=== PATIENT | female | born 1990 | race Caucasian/White ===

== ENCOUNTER 2025-02-23 09:26 | Emergency (ER) | payer OTHER, SELFPAY ==
[2025-02-23 09:31] VITALS: BP 168/116; PULSE 78; TEMP 36.8; O2SAT 100; BMI 24.1
[2025-02-23 09:35] VITALS: BP 168/116
--- NOTE | 2025-02-23 09:46 | ED.GENADUL1 ---
HPI HPI - General Adult General Chief complaint: Abdominal Pain Stated complaint: ABDOMINAL PAIN, SHAKING Time Seen by Provider: 02/23/25 09:30 Source: patient Mode of arrival: walk-in History of Present Illness HPI narrative: 34-year-old female presents to the emergency department for epigastric pain. It began yesterday and has been continuous. No pain in the lower abdomen. No vomiting or diarrhea or constipation. No fever or trauma. She states she is homeless and has been eating some food recently but her significant other did not get ill. She has had 2 C-sections, otherwise no abdominal surgeries. Related Data Home Medications ?Medication ?Instructions ?Recorded ?Confirmed No Known Home Medications 02/23/25 02/23/25 Allergies Allergy/AdvReac Type Severity Reaction Status Date / Time No Known Drug Allergies Allergy Verified 02/23/25 09:38 Opioid HPI Opioid Management Most Recent Opioid Data: No Data to Display Review of Systems ROS Narrative A ten point review of systems is negative except as noted above. PFSH PFSH Social History Little interest or pleasure in doing things: not at all Feeling down, depressed, or hopeless: not at all Exam Narrative Exam Narrative: Nurses note and vital signs reviewed and patient is not hypoxic. General: The patient appears unkempt and in no apparent distress. Patient is resting comfortably on cart. Skin: Warm, dry, no pallor noted. There is no rash noted. Head: Normocephalic, atraumatic Eye: Normal conjunctiva, no drainage Ears, Nose, Mouth, and Throat: oral mucosa is moist. Nares patent. Cardiovascular: Regular Rate and Rhythm Respiratory: Patient is in no distress, no accessory muscle use, lungs are clear to auscultation, no wheezing, rales or rhonchi Back: non-tender, no CVA tenderness bilaterally to percussion. GI: Soft and nondistended. Tenderness only in the epigastric area. No masses. No lower abdominal tenderness Musculoskeletal: The patient has no evidence of calf tenderness, no pitting edema, symmetrical pulses noted bilaterally Neurological: A&O, normal speech Psychiatric: Cooperative Constitutional Vital Signs, click to edit/add: Last Vital Signs Temp 98.3 F 02/23/25 09:31 Pulse 73 02/23/25 10:10 Resp 14 02/23/25 10:10 BP 130/93 H 02/23/25 10:09 Pulse Ox 100 02/23/25 09:31 O2 Del Method Room Air 02/23/25 09:31 Course Vital Signs Vital signs: Vital Signs Temperature 98.3 F 02/23/25 09:31 Pulse Rate 78 02/23/25 09:31 Respiratory Rate 20 02/23/25 09:31 Blood Pressure 168/116 H 02/23/25 09:31 Pulse Oximetry 100 02/23/25 09:31 Oxygen Delivery Method Room Air 02/23/25 09:31 Temperature 98.3 F 02/23/25 09:31 Pulse Rate 73 02/23/25 10:10 Respiratory Rate 14 02/23/25 10:10 Blood Pressure 130/93 H 02/23/25 10:09 Pulse Oximetry 100 02/23/25 09:31 Oxygen Delivery Method Room Air 02/23/25 09:31 Medical Decision Making MDM Narrative Medical decision making narrative: Her workup including amylase and lipase is negative. She is feeling improved after GI cocktail and should be discharged home. She was recommended Tums and Maalox. Treatment diagnosis and follow-up were discussed with the patient Differential Diagnosis Differential Diagnosis: Food poisoning, pancreatitis, hepatitis, GERD Lab Data Lab results reviewed: Yes I reviewed the patient's lab results Labs: Lab Results 02/23/25 Range/Units 10:06 WBC 9.2 (4.0-11.0) 10^3/uL RBC 4.86 (4.20-5.40) 10^6/uL Hgb 13.0 (12.0-16.0) g/dL Hct 39.7 (36.0-48.0) % MCV 81.7 (81.0-99.0) fL MCH 26.7 (26.7-34.0) pg MCHC 32.7 (29.9-35.2) g/dL RDW 15.9 H (11.0-15.0) % Plt Count 288 (150-450) 10^3/uL MPV 10.7 (9.5-13.5) fL Neut % (Auto) 71.2 (43.0-75.0) % Lymph % (Auto) 19.7 L (20.5-60.0) % [place] % (Auto) 7.9 (1.7-12.0) % Eos % (Auto) 0.4 L (0.9-7.0) % Baso % (Auto) 0.3 (0.2-2.0) % Neut # (Auto) 6.6 H (1.4-6.5) 10^3/uL Lymph # (Auto) 1.8 (1.2-3.8) 10^3/uL [place] # (Auto) 0.7 (0.3-0.8) 10^3/uL Eos # (Auto) 0.0 (0.0-0.7) 10^3/uL Baso # (Auto) 0.0 (0.0-0.1) 10^3/uL Abs Immat Gran (auto) 0.05 H (0.00-0.03) 10^3/uL Imm/Tot Granulo (auto) 0.5 (0.0-0.5) % Sodium 139 (136-145) mmol/L Potassium 3.9 (3.5-5.1) mmol/L Chloride 103 (98-107) mmol/L Carbon Dioxide 26.6 (21.0-32.0) mmol/L Anion Gap 13.3 BUN 11.0 (7.0-18.0) mg/dL Creatinine 0.82 (0.55-1.02) mg/dL Est GFR ( Amer) >60 (>=60 mL/min/1.73m^2) Est GFR (Non-Af Amer) >60 (>=60 mL/min/1.73m^2) BUN/Creatinine Ratio 13.4 Glucose 100 (74-106) mg/dL Calcium 8.8 (8.5-10.1) mg/dL Total Bilirubin 0.3 (0.2-1.0) mg/dL Direct Bilirubin 0.1 (0.0-0.2) mg/dL AST 14 L (15-37) U/L ALT 11 L (14-59) U/L Alkaline Phosphatase 85 (46-116) U/L Total Protein 7.3 (6.4-8.2) g/dL Albumin 3.5 (3.4-5.0) g/dL Globulin 3.8 g/dL Albumin/Globulin Ratio 0.9 Amylase 91 (25-115) U/L Lipase 44.0 (16.0-77.0) U/L Serum HCG, Qual Negative (NEGATIVE) ECG Data Attestation: I personally reviewed and interpreted this ECG as follows: (EKG on my interpretation shows sinus rhythm with rate of 76 and no acute change) Discharge Plan Discharge Chief Complaint: Abdominal Pain Clinical Impression: Abdominal pain, epigastric Patient Disposition: Home, Self-Care Time of Disposition Decision: 11:04 Condition: Good Mode of Transportation: Private Vehicle Prescriptions / Home Meds: No Action No Known Home Medications Print Language: Trinidadian Instructions: Epigastric Pain (ED) Referrals: Physician,Non-Staff, MD [Primary Care Provider] - 1 week
--- NOTE | 2025-02-23 09:48 | ECG_ITS ---
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 Measurements Intervals [place] Rate: 76 P: 62 AK: 152 QRS: 64 QRSD: 82 T: 43 QT: 392 QTc: 422 Interpretive Statements 1100 Sinus rhythm 9110 normal ECG No previous ECG available for comparison Electronically Signed On 02-23-2025 20:13:24 EDT by JIM ORTIZ M.D.
[2025-02-23] MEDS: lidocaine HCL 15 ML, MAG HYDROX/ALUMINUM HYD/SIMETH 30 ML, HYOSCYAMINE SULFATE 0.25 MG PO (10:00)
[2025-02-23 10:04] VITALS: PULSE 70
[2025-02-23 10:06] VITALS: BP 139/102; PULSE 75
[2025-02-23 10:09] VITALS: BP 130/93; PULSE 68
[2025-02-23 10:10] VITALS: PULSE 73
[2025-02-23 10:15] LABS: Basophils Percent Auto 0.3 % (0.2-2.0); Eosinophils Percent Auto 0.4 % (0.9-7.0); Hematocrit 39.7 % (36.0-48.0); Immature Granulocytes Abs Auto 0.05 10^3/uL (0.00-0.03); Immature Granulocytes Pct Auto 0.5 % (0.0-0.5); Lymphocytes Absolute Auto 1.8 10^3/uL (1.2-3.8); Lymphocytes Percent Auto 19.7 % (20.5-60.0); Mean Corpuscular HGB Conc 32.7 g/dL (29.9-35.2); Mean Corpuscular Hemoglobin 26.7 pg (26.7-34.0); Mean Corpuscular Volume 81.7 fL (81.0-99.0); Mean Platelet Volume 10.7 fL (9.5-13.5); Monocytes Absolute Auto 0.7 10^3/uL (0.3-0.8); Monocytes Percent Auto 7.9 % (1.7-12.0); Neutrophils Absolute Auto 6.6 10^3/uL (1.4-6.5); Neutrophils Percent Auto 71.2 % (43.0-75.0); Platelet Count 288 10^3/uL (150-450); Red Blood Count 4.86 10^6/uL (4.20-5.40); Red Cell Distribution Width 15.9 % (11.0-15.0); White Blood Count 9.2 10^3/uL (4.0-11.0)
[2025-02-23 10:32] LABS: Alanine Aminotransferase 11 U/L (14-59); Albumin Globulin Ratio 0.9; Albumin Level 3.5 g/dL (3.4-5.0); Alkaline Phosphatase 85 U/L (46-116); Amylase 91 U/L (25-115); Anion Gap 13.3; Aspartate Amino Transferase 14 U/L (15-37); BUN Creatinine Ratio 13.4; Bilirubin Direct 0.1 mg/dL (0.0-0.2); Bilirubin Total 0.3 mg/dL (0.2-1.0); Calcium 8.8 mg/dL (8.5-10.1); Carbon Dioxide 26.6 mmol/L (21.0-32.0); Chloride 103 mmol/L (98-107); Estimated GFR (African America >60 (>=60 mL/min/1.73m^2); Estimated GFR (Non-African Ame >60 (>=60 mL/min/1.73m^2); Globulin 3.8 g/dL; Glucose 100 mg/dL (74-106); Potassium 3.9 mmol/L (3.5-5.1); Sodium 139 mmol/L (136-145); Total Protein 7.3 g/dL (6.4-8.2)
[2025-02-23 10:41] LABS: HCG Qualitative NEGATIVE (NEGATIVE); Internal Control Within Normal Limits
== END 2025-02-23 11:24 | disposition home or self-care (01) ==
PROVIDERS: Emergency Provider Emergency Medicine
DX: R10.13 Epigastric pain (principal); Z59.00 Homelessness unspecified
CPT/HCPCS: 36415; 80048; 80076; 82150; 83690; 84703; 85025; 93005; 99284

== ENCOUNTER 2025-02-24 06:08 | Emergency (ER) | payer OTHER, SELFPAY ==
[2025-02-24 06:12] VITALS: BP 186/108; PULSE 78; TEMP 37; O2SAT 99; BMI 24.1
--- OUTSIDE RECORDS SUMMARY | 2025-02-24 06:27 | XMS_ITS | CCD ---
Author Organization [place] [facility] Team Providers Care Iuss Acoustic Analyst Name Role Phone NO PCP, NO PCP Primary Care Unavailable Problems Problem Classification Problem Date Documented Da te Episodic/Chronic Immunizations and screening for infectious disease (1 source) Encounter for immunization; Translations: [Encounter for immunization] Onset: 01-16-2025 Episodic Other aftercare (1 source) Encounter for other specified aftercare; Translations: [Encounter for other specified aftercare] Onset: 01-16-2025 Episodic Unclassified (1 source) Medical Screening Onset: 01-16-2025 Unclassified (1 source) EMS Onset: 01-16-2025 Results Test Name Value Interpretation Reference Range Facil ity Outside Recordson 01-16-2025 Outside Records [id number] 0#1.00OTGTIFF [facility] Medication Managementon Medication Management Entered by Gracie Brown on May 01, 2018 10:43:47 EDT -----From: Gracie BrownTo: GIUSEPPE STEWATR STSent: 05/01/2018 10:43:47 EDTSubject: Medication Management Approved with modifications: ethinyl estradiol-norgestim ate (TRI-LINYAH TABLET) take 1 tablet by mouth once daily as directedQty: 28 tab(s) Days Supply: 28 Refills: 1Substitutions Allowed Route To Pharmacy - [facility] STEWART STSigned by Gracie Brown Patient matched by Gracie Brown on 05/01/2018 10:43:03 EDT ------From: [facility] PRATER-[address]To: YARON TRISTON Cole MDSent: May 01, 2018 9:11:10 AM CDTSubject: Medication ManagementDue: May 02, 2018 9:11:10 AM CDT On Hold Pending Signature Drug: ethinyl estradiol-norgestim ate (Ortho Tri-Cyclen oral tablet) Take 1 tablet(s) by mouth daily as directed.Quantity: 28 unknown unit Days Supply: 28 Refills: 3Substitutions AllowedNotes from Pharmacy:Dispensed Drug: ethinyl estradiol-norgestim ate (Tri-Linyah 35 mcg oral tablet) take 1 tablet by mouth once daily as directedQuantity: 28 tab(s) Days Supply: 28 Refills: 3Substitutions AllowedNotes from Pharmacy: Normal [facility] Encounters Encounter Date Encounter Type Care Provider Facility Start: 01-16-2025 End: 01-16-2025 Emergency department patient visit NO PCP NO PCP [facility] Payers Date Payer Category Payer Medicaid [id number] 1990 Unknown [id number] Summary Purpose Family History No Family History Records FoundNo Family History Records FoundNo Family History Records Found Advance Directives No Advanced Directives Records FoundNo Advanced Directives Records FoundNo Advanced Directives Records Found Additional Source Comments INFORMATION SOURCE (unrecogn ized section and content) DATE CREATED AUTHOR 05/15/2018 [facility] DATE CREATED AUTHOR AUTHOR'S ORGANIZ ATION 01/18/2025 [facility] DATE CREATED AUTHOR AUTHOR'S ORGANIZ ATION 01/18/2025 [facility] FOR RECORDS PERTAINING TO PATIENTS WHO ARE OR HAVE BEEN ENROLLED IN A CHEMICAL DEPENDENCY/SUBSTANCEABUSE PROGRAM, SOME INFORMATION MAY BE OMITTED. This clinical summary was aggregated from multiple sources. Caution should be exercised in using it in the provision of clinical care. This summary normalizes information from multiple sources, and as a consequence, information in this document may materially change the coding, format and clinical context of patient data. In addition, data may be omitted in some cases. CLINICAL DECISIONS SHOULD BE BASED ON THE PRIMARY CLINICAL RECORDS. [facility]. provides no warranty or guarantee of the accuracy or completeness of information in this document.
--- NOTE | 2025-02-24 07:19 | US_ITS ---
The [address] [address] Patient Name: RAKESH AVALOS MRN: [id number] date: 1990 Sex: F Assigned Patient Location: ER Current Patient Location: ER Accession/Order Number: [id number] Exam Date: 02/24/2025 08:09 Report Date: 02/24/2025 08:11 At the request of: MITCHEL WASHINGTON MD Procedure: US right upper quadrant LIMITED ABDOMINAL ULTRASOUND CLINICAL HISTORY: Right upper quadrant pain for the past 2 days with nausea and vomiting COMPARISON: None The gallbladder is physiologically distended. A large mobile gallstone is present measuring almost 3 cm in size. Gallbladder polyps are also visualized. No wall thickening or pericholecystic fluid is seen. No intra- or extrahepatic biliary dilatation is evident. The common duct measures 2 - 3 mm. The liver is normal in echogenicity. No intrahepatic masses are seen. There is appropriate hepatopetal flow within the main portal vein. The pancreas shows no significant sonographic abnormality. Cursory evaluation of the right kidney reveals no hydronephrosis or fluid within Savage's pouch. US/US right upper quadrant IMPRESSION: CHOLELITHIASIS AND GALLBLADDER POLYPS. NO OTHER ACUTE FINDINGS. Impression dictated by: Camilla Cook M.D.02/24/2025 8:11 AM Dictation Location: [place] [address] Electronically authenticated by: [id number] Y Date: 02/24/2025 08:11
--- NOTE | 2025-02-24 07:25 | ED.GENADUL1 ---
HPI HPI - General Adult General Chief complaint: Abdominal Pain Stated complaint: ABDOMINAL PAIN Time Seen by Provider: 02/24/25 06:15 Source: patient Source information: Pt was seen in the ER yesterday Mode of arrival: walk-in History of Present Illness HPI narrative: 34-year-old female presents to the emergency department Related Data Previous Rx's ?Medication ?Instructions ?Recorded acetaminophen 300 mg-codeine 30 mg 1 tab PO Q6H PRN pain 5 days #20 02/24/25 tablet tabs ondansetron 4 mg disintegrating 4 mg PO Q6H PRN nausea and 02/24/25 tablet vomiting #20 tabs Allergies Allergy/AdvReac Type Severity Reaction Status Date / Time No Known Drug Allergies Allergy Verified 02/23/25 09:38 Opioid HPI Opioid Management Most Recent Opioid Data: Last Pain Scale 4 02/24/25 08:04 02/24/25 Last ED Pain Assessment 02/24/25 08:04 Last MAR Pain Assessment 02/24/25 07:36 PFSH PFSH Social History Little interest or pleasure in doing things: not at all Feeling down, depressed, or hopeless: not at all Exam Constitutional Vital Signs, click to edit/add: Last Vital Signs Temp 98.6 F 02/24/25 06:12 Pulse 64 02/24/25 08:04 Resp 16 02/24/25 08:04 BP 154/105 H 02/24/25 08:04 Pulse Ox 98 02/24/25 08:04 O2 Del Method Room Air 02/24/25 08:04 Course Vital Signs Vital signs: Vital Signs Temperature 98.6 F 02/24/25 06:12 Pulse Rate 78 02/24/25 06:12 Respiratory Rate 16 02/24/25 06:12 Blood Pressure 186/108 H 02/24/25 06:12 Pulse Oximetry 99 02/24/25 06:12 Oxygen Delivery Method Room Air 02/24/25 06:12 Temperature 98.6 F 02/24/25 06:12 Pulse Rate 64 02/24/25 08:04 Respiratory Rate 16 02/24/25 08:04 Blood Pressure 154/105 H 02/24/25 08:04 Pulse Oximetry 98 02/24/25 08:04 Oxygen Delivery Method Room Air 02/24/25 08:04 Medical Decision Making MDM Narrative Medical decision making narrative: Gallstone is identified without acute cholecystitis. She was prescribed Tylenol 3 and Zofran and referred to general surgery for follow-up. Treatment diagnosis and follow-up were discussed with the patient. Her blood work from less than 24 hours ago was reviewed and found to be normal. Differential Diagnosis Differential Diagnosis: GERD, biliary colic, pancreatitis Medical Records Medical records reviewed: Yes I reviewed the patient's medical records Imaging Data Gallbladder ultrasound: Radiologist's impression: ITS Impressions Upper Quadrant Ultrasound 02/24/25 07:19 IMPRESSION: CHOLELITHIASIS AND GALLBLADDER POLYPS. NO OTHER ACUTE FINDINGS. Impression dictated by: Camilla Cook M.D.02/24/2025 8:11 AM Dictation Location: [place] [address] Electronically authenticated by: [id number] Y Date: 02/24/2025 08:11 Discharge Plan Discharge Chief Complaint: Abdominal Pain Clinical Impression: Biliary colic, Cholelithiasis Patient Disposition: Home, Self-Care Time of Disposition Decision: 08:38 Condition: Good Mode of Transportation: Private Vehicle Prescriptions / Home Meds: New acetaminophen-codeine 300-30 mg tablet 1 tab PO Q6H PRN (Reason: pain) 5 Days Qty: 20 0RF ondansetron 4 mg tablet,disintegrating 4 mg PO Q6H PRN (Reason: nausea and vomiting) Qty: 20 0RF Print Language: Serbian Instructions: Biliary Colic (ED), Gallstones (ED) Referrals: Keven Marie MD [Physician] - 1 week Keven Blair MD [Physician] - 1 week Physician,Non-StaffMD [Primary Care Provider] - 1 week
[2025-02-24] MEDS: ONDANSETRON PF 4 MG/2 ML VIAL IV (07:36)
[2025-02-24] MEDS: MORPHINE SULFATE 4 MG/ML VIAL IV (07:36)
[2025-02-24] MEDS: FAMOTIDINE/PF 20 MG/2 ML VIAL IV (07:36)
[2025-02-24 08:04] VITALS: BP 154/105; PULSE 64; O2SAT 98
[2025-02-24 08:54] VITALS: BP 146/100; PULSE 68; O2SAT 99
== END 2025-02-24 08:56 | disposition home or self-care (01) ==
PROVIDERS: Emergency Provider Emergency Medicine
DX: K80.70 Calculus of gallbladder and bile duct without cholecystitis without obstruction (principal)
CPT/HCPCS: 76705; 96374; 96375; 99284; J2270; J2405; J3490